=== PATIENT | female | born 1945 | race Caucasian/White ===

== ENCOUNTER 2021-04-23 13:59 | Inpatient (IN) | payer MEDICARE, BC ==
[~2021-04-23 13:59] MED LIST: Iopamidol-370 76% 500 ML 1 ML ONE
[2021-04-23] MEDS ORDERED: Ondansetron PF 4 MG/2 ML Vial ONE (14:57)
[2021-04-23] MEDS ORDERED: Morphine 4 MG/ML VIAL ONE (14:57)
[2021-04-23 14:58] LABS: #Lymphocytes 0.7 thou/uL (1.20-3.40); #Monocytes 0.4 thou/uL (0.11-0.59); #Neutrophils 11.7 thou/uL (1.40-6.50); %Basophils 0.1 % (0.0-1.0); %Eosinophils 0.3 % (0.0-10.0); %Lymphocytes 5.1 % (21.0-51.0); %Monocytes 3.2 % (0.0-10.0); %Neutrophils 91.3 % (42.0-75.0); Hemoglobin 14.5 g/dL (12.0-16.0); Mean Corpuscular HGB CONC 30.8 g/dL (32.0-36.0); Mean Corpuscular Hemoglobin 29.5 pg (27.0-31.0); Mean Corpuscular Volume 95.9 fL (78.0-98.0); Mean Platelet Volume 6.8 fL (7.4-10.4); Platelet Count 441 thou/uL (130-400); RBC Distribution Width 14.2 % (11.5-14.5); White Blood Cell (WBC) Count 12.8 thou/uL (4.8-10.8)
[2021-04-23 15:53] LABS: ALT (SGPT) 1545 U/L (8-55); AST (SGOT) 1772 U/L (5-34); Albumin 4.6 g/dL (3.4-4.8); Alkaline Phosphatase 217 U/L (40-110); Anion Gap 33 mmol/L (10-20); BUN (Urea Nitrogen) 17 mg/dL (9.8-20.1); Bilirubin, Total 0.9 mg/dL (0.2-1.2); Calc. Creatinine Clearance 0 mL/min (70-130); Calcium 11.3 mg/dL (7.8-10.44); Carbon Dioxide 13 mmol/L (23-31); Chloride 99 mmol/L (98-107); Globulin 3.5 g/dL (2.4-3.5); Glucose 69 mg/dL (83-110); Lipase 500 U/L (8-78); Magnesium 1.7 mg/dL (1.6-2.6); Potassium 4.7 mmol/L (3.5-5.1); Protein, Total 8.1 g/dL (5.8-8.1); Sodium 140 mmol/L (136-145)
[2021-04-23] MEDS ORDERED: Dextrose 50% Abboject 50 ML SYRINGE ONE (18:04)
[2021-04-23] MEDS ORDERED: Ondansetron PF 4 MG/2 ML Vial IVP PRN (18:24)
[2021-04-23] MEDS ORDERED: Dextrose 5% in Water 1,000 ML IV PRN (18:44)
[2021-04-23] MEDS ORDERED: Dextrose 50% Abboject 50 ML SYRINGE SLOW IVP PRN (18:44)
[2021-04-23] MEDS ORDERED: Dextrose 5 %-0.45 % NaCl 1,000 ML IV SCH (18:45)
[2021-04-23] MEDS ORDERED: Morphine 4 MG/ML VIAL SLOW IVP PRN (19:08)
[2021-04-23 20:25] LABS: Actual Bicarbonate (HCO3v) 16 mEq/L (22-28); Analyzer IN Cardio ER; Base Excess -7.6 mEq/L (-2.0 to +3.0); Calcium, Ionized (venous) 1.28 mmol/L (1.16-1.32); Chloride (VBG) 106 mmol/L (98-106); Hemoglobin (Hb) 12.5 g/dL (11.7-16.1); Potassium (VBG) 3.82 mmol/L (3.70-5.30); Sodium 140.9 mmol/L (133-146); pH (venous) 7.38 (7.32-7.43)
[2021-04-23 20:37] LABS: SARS-CoV-2 NAA Rapid Test Not Detected (NotDetected)
[2021-04-23] MEDS ORDERED: Heparin 5,000 UNITS/ML VIAL SC SCH (21:00)
[2021-04-23 21:01] LABS: Acetaminophen Less than 6.0 mcg/mL (10.0-30.0); Alcohol Less than 10 mg/dL (Less than 10); Salicylate Less than 8.0 mg/dL (15.0-30.0)
[2021-04-23] MEDS ORDERED: Sodium Bicarbonate 150 MEQ in Dextrose 5% in Water 850 ML FS SCH (21:15)
[2021-04-23 21:23] LABS: INR-International Normal Ratio 1.2; PTT 32.2 sec (22.9-36.1); Prothrombin Time 15.7 sec (12.0-14.7)
[2021-04-23 21:25] LABS: Bilirubin 1+ (Negative); Blood, Urine 3+ (Negative); Clarity Clear (Clear); Glucose, Urine (Dipstick) 50 mg/dL (Negative); Ketone, Urine 60 mg/dL (Negative); Leukocyte 250 Leu/uL (Negative); Nitrite Negative (Negative); Protein, Urine (Dipstick) 100 mg/dL (Neg-Trace); RBC/HPF 21-50 HPF (0-3); Squamous Epithelial 0-3 HPF (0-3); WBC/HPF 21-50 HPF (0-3)
[2021-04-23 21:32] LABS: Acetaminophen Less than 6.0 mcg/mL (10.0-30.0); CK (CPK) 55 U/L (29-168)
[2021-04-23 21:40] LABS: Bacteria/HPF Rare-Few HPF (None Seen)
[2021-04-23] MEDS: Morphine 4 MG/ML VIAL SLOW IVP PRN (22:01)
[2021-04-23] MEDS: Ondansetron PF 4 MG/2 ML Vial IVP PRN (22:02)
[2021-04-23] MEDS: Sodium Bicarbonate 150 MEQ in Dextrose 5% in Water 850 ML FS SCH (22:06)
[2021-04-23] MEDS: Clotrimazole 1 % Cream 30 GM TUBE TOP SCH (22:46)
[2021-04-23] MEDS: Pantoprazole 40 MG VIAL IVP SCH (22:47)
[2021-04-24] MEDS: Morphine 4 MG/ML VIAL SLOW IVP PRN ×3 (02:24→22:39)
[2021-04-24] MEDS: Ondansetron PF 4 MG/2 ML Vial IVP PRN ×3 (02:30→22:39)
[2021-04-24 06:27] LABS: #Lymphocytes 0.7 thou/uL (1.20-3.40); #Monocytes 0.8 thou/uL (0.11-0.59); #Neutrophils 9.4 thou/uL (1.40-6.50); %Eosinophils 0.2 % (0.0-10.0); %Lymphocytes 6.4 % (21.0-51.0); %Monocytes 6.9 % (0.0-10.0); %Neutrophils 86.4 % (42.0-75.0); Hemoglobin 10.8 g/dL (12.0-16.0); Mean Corpuscular HGB CONC 31.8 g/dL (32.0-36.0); Mean Corpuscular Hemoglobin 30.1 pg (27.0-31.0); Mean Corpuscular Volume 94.5 fL (78.0-98.0); Mean Platelet Volume 6.7 fL (7.4-10.4); Platelet Count 345 thou/uL (130-400); RBC Distribution Width 14.3 % (11.5-14.5); Red Blood Cell (RBC) Count 3.61 mill/uL (4.20-5.40); White Blood Cell (WBC) Count 10.8 thou/uL (4.8-10.8)
[2021-04-24 06:49] LABS: ALT (SGPT) 869 U/L (8-55); AST (SGOT) 728 U/L (5-34); Albumin 3.4 g/dL (3.4-4.8); Alkaline Phosphatase 141 U/L (40-110); Anion Gap 17 mmol/L (10-20); BUN (Urea Nitrogen) 12 mg/dL (9.8-20.1); Bilirubin, Total 0.9 mg/dL (0.2-1.2); Calc. Creatinine Clearance 46 mL/min (70-130); Calcium 9.9 mg/dL (7.8-10.44); Carbon Dioxide 29 mmol/L (23-31); Chloride 100 mmol/L (98-107); Globulin 2.8 g/dL (2.4-3.5); Glucose 119 mg/dL (83-110); Magnesium 1.3 mg/dL (1.6-2.6); Potassium 3.5 mmol/L (3.5-5.1); Protein, Total 6.2 g/dL (5.8-8.1); Sodium 142 mmol/L (136-145)
[2021-04-24] MEDS: Sodium Bicarbonate 150 MEQ in Dextrose 5% in Water 850 ML FS SCH (07:33)
[2021-04-24 07:44] LABS: Hemoglobin 10.9 g/dL (12.0-16.0)
[2021-04-24] MEDS ORDERED: LEVAQUIN IVPB PRN (08:58)
[2021-04-24] MEDS: Sodium Chloride 0.45% 1,000 ML IV SCH ×2 (10:11→22:35)
[2021-04-24 13:55] LABS: Hemoglobin 10.7 g/dL (12.0-16.0)
[2021-04-24] MEDS: Pantoprazole 40 MG VIAL IVP SCH ×2 (14:14→20:17)
[2021-04-24 14:34] LABS: Iron 64 ug/dL (50-170); Iron Binding Capacity, Total 185 mcg/dL (265-497)
[2021-04-24 14:58] LABS: HBSAg Index 0.22 S/CO (0-0.99); Hep B Surf Ag Non-Reactive S/CO (NonReactive)
[2021-04-24 15:00] LABS: Hep C IgG Ab Non-Reactive (NonReactive); Hep C Index 0.19 S/CO (0-0.79)
[2021-04-24 15:16] LABS: HBCM Index 0.06 S/CO (0-0.79); Hep A IgM AB Non-Reactive (NonReactive); Hep A IgM S/CO 0.44 S/CO (0-0.79); Hepatitis B Core IgM Abs Non-Reactive (NonReactive)
[2021-04-24 16:13] LABS: Ferritin 2115.95 ng/mL (10-291)
[2021-04-24] MEDS ORDERED: Cosyntropin 250 MCG VIAL SLOW IVP SCH (17:45)
[2021-04-24] MEDS ORDERED: methylPREDNISolone Sod Succ 40 MG VIAL ONE (20:07)
[2021-04-24] MEDS: methylPREDNISolone Sod Succ 40 MG VIAL IVP SCH (20:30)
[2021-04-24] MEDS: Clotrimazole 1 % Cream 30 GM TUBE TOP SCH (20:48)
[2021-04-25 04:27] LABS: #Basophils 0.1 thou/uL (0.0-0.2); #Lymphocytes 0.2 thou/uL (1.20-3.40); #Monocytes 0.1 thou/uL (0.11-0.59); #Neutrophils 5.4 thou/uL (1.40-6.50); %Basophils 1.8 % (0.0-1.0); %Eosinophils 0.2 % (0.0-10.0); %Lymphocytes 2.9 % (21.0-51.0); %Neutrophils 94.2 % (42.0-75.0); Hemoglobin 9.8 g/dL (12.0-16.0); Mean Corpuscular HGB CONC 32.2 g/dL (32.0-36.0); Mean Corpuscular Hemoglobin 31.1 pg (27.0-31.0); Mean Corpuscular Volume 96.7 fL (78.0-98.0); Mean Platelet Volume 6.3 fL (7.4-10.4); Platelet Count 291 thou/uL (130-400); RBC Distribution Width 13.9 % (11.5-14.5); Red Blood Cell (RBC) Count 3.16 mill/uL (4.20-5.40); White Blood Cell (WBC) Count 5.7 thou/uL (4.8-10.8)
[2021-04-25 04:47] LABS: Anion Gap 14 mmol/L (10-20); BUN (Urea Nitrogen) 8 mg/dL (9.8-20.1); Calc. Creatinine Clearance 57 mL/min (70-130); Calcium 8.8 mg/dL (7.8-10.44); Carbon Dioxide 30 mmol/L (23-31); Chloride 95 mmol/L (98-107); Glucose 120 mg/dL (83-110); Sodium 135 mmol/L (136-145)
[2021-04-25] MEDS: Aztreonam 1 GM in Sodium Chloride 0.9% 100 ML IVPB SCH ×2 (11:13→21:03)
[2021-04-25] MEDS: Sodium Chloride 0.9% 1,000 ML IV SCH (11:14)
[2021-04-25] MEDS: Pantoprazole 40 MG VIAL IVP SCH ×2 (11:14→21:49)
[2021-04-25] MEDS: methylPREDNISolone Sod Succ 40 MG VIAL IVP SCH ×2 (11:14→21:03)
[2021-04-25 18:18] LABS: ALT (SGPT) 466 U/L (8-55); AST (SGOT) 261 U/L (5-34); Albumin 3.2 g/dL (3.4-4.8); Alkaline Phosphatase 114 U/L (40-110); Bilirubin, Direct 0.5 mg/dL (0.1-0.3); Bilirubin, Total 0.8 mg/dL (0.2-1.2); Protein, Total 5.8 g/dL (5.8-8.1)
[2021-04-25] MEDS: Ondansetron PF 4 MG/2 ML Vial IVP PRN (21:03)
[2021-04-25] MEDS: Morphine 4 MG/ML VIAL SLOW IVP PRN (21:05)
[2021-04-25] MEDS: Clotrimazole 1 % Cream 30 GM TUBE TOP SCH (21:08)
[2021-04-26] MEDS: Sodium Chloride 0.9% 1,000 ML IV SCH ×3 (00:51→21:19)
[2021-04-26] MEDS: Melatonin 3 MG TAB PO PRN ×2 (00:52→21:21)
[2021-04-26 06:48] LABS: #Lymphocytes 0.3 thou/uL (1.20-3.40); #Monocytes 0.1 thou/uL (0.11-0.59); #Neutrophils 5.1 thou/uL (1.40-6.50); %Eosinophils 0.3 % (0.0-10.0); %Lymphocytes 5.6 % (21.0-51.0); %Monocytes 1.8 % (0.0-10.0); %Neutrophils 92.3 % (42.0-75.0); Hemoglobin 9.2 g/dL (12.0-16.0); Mean Corpuscular HGB CONC 32.8 g/dL (32.0-36.0); Mean Corpuscular Hemoglobin 31.2 pg (27.0-31.0); Mean Corpuscular Volume 95.1 fL (78.0-98.0); Mean Platelet Volume 6.4 fL (7.4-10.4); Platelet Count 271 thou/uL (130-400); RBC Distribution Width 13.8 % (11.5-14.5); Red Blood Cell (RBC) Count 2.96 mill/uL (4.20-5.40); White Blood Cell (WBC) Count 5.6 thou/uL (4.8-10.8)
[2021-04-26 07:06] LABS: ALT (SGPT) 366 U/L (8-55); AST (SGOT) 181 U/L (5-34); Alkaline Phosphatase 98 U/L (40-110); Anion Gap 15 mmol/L (10-20); BUN (Urea Nitrogen) 9 mg/dL (9.8-20.1); Bilirubin, Total 0.6 mg/dL (0.2-1.2); Calc. Creatinine Clearance 48 mL/min (70-130); Calcium 8.2 mg/dL (7.8-10.44); Carbon Dioxide 27 mmol/L (23-31); Chloride 99 mmol/L (98-107); Globulin 2.4 g/dL (2.4-3.5); Glucose 104 mg/dL (83-110); Lipase 56 U/L (8-78); Potassium 3.8 mmol/L (3.5-5.1); Protein, Total 5.4 g/dL (5.8-8.1); Sodium 137 mmol/L (136-145)
[2021-04-26] MEDS: Aztreonam 1 GM in Sodium Chloride 0.9% 100 ML IVPB SCH ×2 (09:22→21:18)
[2021-04-26] MEDS: Pantoprazole 40 MG VIAL IVP SCH ×2 (09:22→21:22)
[2021-04-26] MEDS: methylPREDNISolone Sod Succ 40 MG VIAL IVP SCH ×2 (09:22→21:22)
[2021-04-26] MEDS: Morphine 4 MG/ML VIAL SLOW IVP PRN ×2 (09:38→16:23)
[2021-04-26] MEDS: Ondansetron PF 4 MG/2 ML Vial IVP PRN ×2 (09:50→16:20)
[2021-04-26 11:19] LABS: ANA Symphony (Qualitative) Negative (Negative); ANA Symphony (Quantitative) 0.2 Ratio (< 0.7 Negative); EliA Vaculitis New Method **** NEW METHOD ****; Mitochondrial Ab 0.7 U/mL (<4 Negative); dsDNA IgG Antibody 1.5 IU/mL (<10 Negative)
[2021-04-26] MEDS: Clotrimazole 1 % Cream 30 GM TUBE TOP SCH (21:22)
[2021-04-27] MEDS: Morphine 4 MG/ML VIAL SLOW IVP PRN ×3 (05:54→21:45)
[2021-04-27] MEDS: Ondansetron PF 4 MG/2 ML Vial IVP PRN ×2 (05:59→21:45)
[2021-04-27 06:50] LABS: Reference Lab Name LABCORP
[2021-04-27] MEDS: Aztreonam 1 GM in Sodium Chloride 0.9% 100 ML IVPB SCH ×3 (08:11→21:44)
[2021-04-27] MEDS: methylPREDNISolone Sod Succ 40 MG VIAL IVP SCH ×2 (08:11→21:49)
[2021-04-27] MEDS: Pantoprazole 40 MG VIAL IVP SCH ×2 (08:11→21:49)
[2021-04-27] MEDS ORDERED: FLU VACC QS2021-22(65YR UP)/PF 240 MCG/0.7 ML SYRINGE IM ONE (09:00)
[2021-04-27] MEDS ORDERED: PROPOFOL 20 ML ONE (10:04)
[2021-04-27] MEDS ORDERED: Famotidine/PF 20 mg/2ml Vial ONE (10:04)
[2021-04-27] MEDS ORDERED: Ondansetron PF 4 MG/2 ML Vial ONE ×2 (10:04→10:20)
[2021-04-27] MEDS ORDERED: Fentanyl 100 MCG/2 ML VIAL ONE (10:04)
[2021-04-27] MEDS ORDERED: Midazolam HCl 2 mg/2 ml Vial ONE (10:04)
[2021-04-27] MEDS ORDERED: Iothalamate Meglumine 60% 50 ML VIAL FS ONE (10:08)
[2021-04-27] MEDS ORDERED: Lidocaine 1% PF 5 ML VIAL ONE (10:20)
[2021-04-27] MEDS ORDERED: Promethazine HCl 25 MG/ML VIAL ONE (10:52)
[2021-04-27] MEDS ORDERED: Promethazine HCl 25 MG/ML VIAL IM PRN (10:54)
[2021-04-27] MEDS ORDERED: Ondansetron HCl/PF 4 MG/2 ML Vial IVP PRN (10:54)
[2021-04-27] MEDS ORDERED: Promethazine HCl 25 MG/ML VIAL IVPB PRN (10:54)
[2021-04-27] MEDS: Sodium Chloride 0.9% 1,000 ML IV SCH ×2 (13:26→14:51)
[2021-04-27 13:38] LABS: IgA - Total IgA (Sendout) 188 mg/dL (64-422); Immunoglobulin - G (Sendout) 547 mg/dL (586-1602); Immunoglobulin - M (Sendout) 83 mg/dL (26-217)
[2021-04-27] MEDS: Clotrimazole 1 % Cream 30 GM TUBE TOP SCH (21:49)
[2021-04-28] MEDS: Morphine 4 MG/ML VIAL SLOW IVP PRN ×4 (03:10→20:10)
[2021-04-28] MEDS: Sodium Chloride 0.9% 1,000 ML IV SCH ×3 (07:47→16:22)
[2021-04-28] MEDS: methylPREDNISolone Sod Succ 40 MG VIAL IVP SCH ×2 (09:20→20:10)
[2021-04-28] MEDS: Aztreonam 1 GM in Sodium Chloride 0.9% 100 ML IVPB SCH ×2 (09:20→20:10)
[2021-04-28] MEDS: Pantoprazole 40 MG VIAL IVP SCH ×2 (11:37→20:11)
[2021-04-28] MEDS: Ondansetron PF 4 MG/2 ML Vial IVP PRN ×2 (14:02→20:10)
[2021-04-28 15:36] LABS: #Lymphocytes 0.4 thou/uL (1.20-3.40); #Monocytes 0.1 thou/uL (0.11-0.59); #Neutrophils 5.1 thou/uL (1.40-6.50); %Basophils 0.3 % (0.0-1.0); %Eosinophils 0.2 % (0.0-10.0); %Lymphocytes 6.7 % (21.0-51.0); %Monocytes 2.1 % (0.0-10.0); %Neutrophils 90.6 % (42.0-75.0); Hemoglobin 9.6 g/dL (12.0-16.0); Mean Corpuscular HGB CONC 32.4 g/dL (32.0-36.0); Mean Corpuscular Hemoglobin 30.9 pg (27.0-31.0); Mean Corpuscular Volume 95.4 fL (78.0-98.0); Mean Platelet Volume 6.2 fL (7.4-10.4); Platelet Count 274 thou/uL (130-400); RBC Distribution Width 14.3 % (11.5-14.5); Red Blood Cell (RBC) Count 3.09 mill/uL (4.20-5.40); White Blood Cell (WBC) Count 5.6 thou/uL (4.8-10.8)
[2021-04-28 16:00] LABS: ALT (SGPT) 164 U/L (8-55); AST (SGOT) 55 U/L (5-34); Albumin 2.5 g/dL (3.4-4.8); Alkaline Phosphatase 70 U/L (40-110); Anion Gap 13 mmol/L (10-20); BUN (Urea Nitrogen) 7 mg/dL (9.8-20.1); Bilirubin, Total 0.3 mg/dL (0.2-1.2); Calc. Creatinine Clearance 56 mL/min (70-130); Calcium 6.6 mg/dL (7.8-10.44); Carbon Dioxide 19 mmol/L (23-31); Chloride 110 mmol/L (98-107); Globulin 1.9 g/dL (2.4-3.5); Glucose 144 mg/dL (83-110); Protein, Total 4.4 g/dL (5.8-8.1); Sodium 139 mmol/L (136-145)
[2021-04-28 16:04] LABS: Potassium 2.9 mmol/L (3.5-5.1)
[2021-04-28] MEDS ORDERED: Potassium Chloride 20 MEQ TAB PO SCH ×2 (16:30→18:45)
[2021-04-28] MEDS: Clotrimazole 1 % Cream 30 GM TUBE TOP SCH (20:11)
[2021-04-29] MEDS: Morphine 4 MG/ML VIAL SLOW IVP PRN ×4 (00:51→20:43)
[2021-04-29 06:16] LABS: ALT (SGPT) 163 U/L (8-55); AST (SGOT) 53 U/L (5-34); Albumin 2.8 g/dL (3.4-4.8); Alkaline Phosphatase 76 U/L (40-110); Anion Gap 11 mmol/L (10-20); BUN (Urea Nitrogen) 7 mg/dL (9.8-20.1); Bilirubin, Total 0.4 mg/dL (0.2-1.2); Calc. Creatinine Clearance 53 mL/min (70-130); Calcium 7.8 mg/dL (7.8-10.44); Carbon Dioxide 24 mmol/L (23-31); Chloride 109 mmol/L (98-107); Globulin 2.1 g/dL (2.4-3.5); Glucose 138 mg/dL (83-110); Potassium 4.8 mmol/L (3.5-5.1); Protein, Total 4.9 g/dL (5.8-8.1); Sodium 139 mmol/L (136-145)
[2021-04-29] MEDS: Sodium Chloride 0.9% 1,000 ML IV SCH ×3 (09:14→20:41)
[2021-04-29] MEDS: Aztreonam 1 GM in Sodium Chloride 0.9% 100 ML IVPB SCH ×2 (09:14→20:41)
[2021-04-29] MEDS: methylPREDNISolone Sod Succ 40 MG VIAL IVP SCH ×2 (09:14→20:42)
[2021-04-29] MEDS: Ondansetron PF 4 MG/2 ML Vial IVP PRN ×2 (09:14→15:24)
[2021-04-29] MEDS: Pantoprazole 40 MG VIAL IVP SCH ×2 (10:31→20:44)
[2021-04-29] MEDS ORDERED: Bisacodyl 5 MG TAB PO PRN (14:08)
[2021-04-29] MEDS: Melatonin 3 MG TAB PO PRN (20:42)
[2021-04-29] MEDS: Clotrimazole 1 % Cream 30 GM TUBE TOP SCH (20:45)
[2021-04-30] MEDS: Morphine 4 MG/ML VIAL SLOW IVP PRN ×4 (01:08→19:21)
[2021-04-30] MEDS: Ondansetron PF 4 MG/2 ML Vial IVP PRN ×3 (01:10→14:59)
[2021-04-30] MEDS: methylPREDNISolone Sod Succ 40 MG VIAL IVP SCH (08:12)
[2021-04-30] MEDS: Aztreonam 1 GM in Sodium Chloride 0.9% 100 ML IVPB SCH (09:11)
[2021-04-30] MEDS: Pantoprazole 40 MG VIAL IVP SCH (09:11)
[2021-04-30] MEDS: Sodium Chloride 0.9% 1,000 ML IV SCH (10:19)
[2021-04-30 10:53] LABS: ALT (SGPT) 126 U/L (8-55); AST (SGOT) 39 U/L (5-34); Albumin 2.9 g/dL (3.4-4.8); Alkaline Phosphatase 79 U/L (40-110); Anion Gap 9 mmol/L (10-20); BUN (Urea Nitrogen) 9 mg/dL (9.8-20.1); Bilirubin, Total 0.4 mg/dL (0.2-1.2); Calc. Creatinine Clearance 49 mL/min (70-130); Calcium 7.9 mg/dL (7.8-10.44); Carbon Dioxide 26 mmol/L (23-31); Chloride 108 mmol/L (98-107); Globulin 2.2 g/dL (2.4-3.5); Glucose 126 mg/dL (83-110); Potassium 3.8 mmol/L (3.5-5.1); Protein, Total 5.1 g/dL (5.8-8.1); Sodium 139 mmol/L (136-145)
[2021-04-30] MEDS ORDERED: Bisacodyl 10 MG SUPP PR PRN (11:55)
[2021-04-30] MEDS ORDERED: Polyethylene Glycol 3350 17 GM Packet PO SCH ×2 (11:55→12:15)
[2021-04-30] MEDS ORDERED: Furosemide 20 MG/2 ML VIAL SLOW IVP SCH (12:00)
[2021-04-30 16:13] LABS: A/G Ratio 1.3 (0.7-1.7); Albumin 2.7 g/dL (2.9-4.4); Alpha 1 0.2 g/dL (0.0-0.4); Alpha 2 0.7 g/dL (0.4-1.0); Beta 0.6 g/dL (0.7-1.3); Gamma 0.5 g/dL (0.4-1.8); Globulin, Total 2.1 g/dL (2.2-3.9); M-Spike Not Observed g/dL (Not Observed)
[2021-04-30 16:37] LABS: Albumin-Ur 23.4 % (.); Alpha 2 - Ur 19.5 % (.); Gamma-Ur 16.2 % (.); M-Spike,% Not Observed % (Not Observed); Protein, Urine 13.5 mg/dL (Not Estab.)
[2021-04-30] MEDS: Melatonin 3 MG TAB PO PRN (19:21)
[2021-05-01] MEDS: Morphine 4 MG/ML VIAL SLOW IVP PRN ×4 (00:55→20:13)
[2021-05-01] MEDS: Ondansetron PF 4 MG/2 ML Vial IVP PRN ×3 (00:58→22:10)
[2021-05-01] MEDS: predniSONE 20 MG TAB PO SCH (08:37)
[2021-05-01] MEDS: Gemfibrozil 600 MG TAB PO SCH ×2 (08:37→19:30)
[2021-05-01] MEDS: Aspirin Chewable 81 MG TAB PO SCH (08:37)
[2021-05-01] MEDS: Hydroxychloroquine Sulfate 200 MG TAB PO SCH (08:38)
[2021-05-01] MEDS: Polyethylene Glycol 3350 17 GM Packet PO SCH (11:49)
[2021-05-01 11:58] LABS: #Lymphocytes 0.7 thou/uL (1.20-3.40); #Monocytes 0.9 thou/uL (0.11-0.59); #Neutrophils 9.4 thou/uL (1.40-6.50); %Basophils 0.2 % (0.0-1.0); %Eosinophils 0.3 % (0.0-10.0); %Lymphocytes 6.7 % (21.0-51.0); %Monocytes 8.3 % (0.0-10.0); %Neutrophils 84.5 % (42.0-75.0); Hemoglobin 10.1 g/dL (12.0-16.0); Mean Corpuscular HGB CONC 32.5 g/dL (32.0-36.0); Mean Corpuscular Hemoglobin 30.9 pg (27.0-31.0); Mean Corpuscular Volume 95.2 fL (78.0-98.0); Mean Platelet Volume 6.9 fL (7.4-10.4); Platelet Count 185 thou/uL (130-400); RBC Distribution Width 14.8 % (11.5-14.5); Red Blood Cell (RBC) Count 3.27 mill/uL (4.20-5.40); White Blood Cell (WBC) Count 11.1 thou/uL (4.8-10.8)
[2021-05-01 12:19] LABS: ALT (SGPT) 96 U/L (8-55); AST (SGOT) 37 U/L (5-34); Albumin 2.7 g/dL (3.4-4.8); Alkaline Phosphatase 77 U/L (40-110); Anion Gap 10 mmol/L (10-20); BUN (Urea Nitrogen) 11 mg/dL (9.8-20.1); Bilirubin, Total 0.5 mg/dL (0.2-1.2); Calc. Creatinine Clearance 52 mL/min (70-130); Calcium 7.9 mg/dL (7.8-10.44); Carbon Dioxide 28 mmol/L (23-31); Chloride 104 mmol/L (98-107); Globulin 2.3 g/dL (2.4-3.5); Glucose 108 mg/dL (83-110); Potassium 3.9 mmol/L (3.5-5.1); Sodium 138 mmol/L (136-145)
[2021-05-01] MEDS ORDERED: Furosemide 40 MG/4 ML VIAL SLOW IVP SCH (12:45)
[2021-05-01] MEDS ORDERED: Bisacodyl 10 MG SUPP PR SCH ×2 (13:00→15:00)
[2021-05-01] MEDS: Bisacodyl 10 MG SUPP PR SCH (20:12)
[2021-05-01] MEDS: Furosemide 20 MG/2 ML VIAL SLOW IVP SCH (20:17)
[2021-05-01] MEDS: Melatonin 3 MG TAB PO PRN (20:17)
[2021-05-02] MEDS: Morphine 4 MG/ML VIAL SLOW IVP PRN ×3 (01:08→10:05)
[2021-05-02] MEDS: Ondansetron PF 4 MG/2 ML Vial IVP PRN ×3 (05:02→14:35)
[2021-05-02] MEDS: predniSONE 20 MG TAB PO SCH (09:49)
[2021-05-02] MEDS: Hydroxychloroquine Sulfate 200 MG TAB PO SCH (09:49)
[2021-05-02] MEDS: Furosemide 20 MG/2 ML VIAL SLOW IVP SCH ×2 (09:50→20:06)
[2021-05-02] MEDS: Gemfibrozil 600 MG TAB PO SCH ×2 (09:50→17:28)
[2021-05-02] MEDS: Bisacodyl 10 MG SUPP PR SCH ×3 (09:51→20:13)
[2021-05-02] MEDS: Aspirin Chewable 81 MG TAB PO SCH (09:51)
[2021-05-02] MEDS: Polyethylene Glycol 3350 17 GM Packet PO SCH (09:52)
[2021-05-02] MEDS ORDERED: HYDROcodone/Acetaminophen 5/325 mg Tablet PO PRN (10:28)
[2021-05-02 12:17] VITALS: BMI 17.8
[2021-05-02] MEDS: Acetaminophen/Codeine 30-300mg Tablet PO PRN (20:06)
[2021-05-03] MEDS: ALPRAZolam 0.5 MG TAB PO PRN ×2 (00:36→21:39)
[2021-05-03] MEDS: Aspirin Chewable 81 MG TAB PO SCH (08:23)
[2021-05-03] MEDS: Hydroxychloroquine Sulfate 200 MG TAB PO SCH (08:24)
[2021-05-03] MEDS: predniSONE 20 MG TAB PO SCH (08:24)
[2021-05-03] MEDS: Bisacodyl 10 MG SUPP PR SCH ×3 (08:24→21:23)
[2021-05-03] MEDS: Gemfibrozil 600 MG TAB PO SCH ×2 (08:24→16:04)
[2021-05-03] MEDS: Furosemide 20 MG/2 ML VIAL SLOW IVP SCH ×2 (08:24→21:23)
[2021-05-03] MEDS: Polyethylene Glycol 3350 17 GM Packet PO SCH (08:25)
[2021-05-03] MEDS: Acetaminophen/Codeine 30-300mg Tablet PO PRN (10:39)
[2021-05-03] MEDS: Ondansetron PF 4 MG/2 ML Vial IVP PRN (14:20)
[2021-05-03 21:04] LABS: SARS-CoV-2 PCR by NAA Not Detected (NotDetected)
[2021-05-04] MEDS: Acetaminophen/Codeine 30-300mg Tablet PO PRN ×3 (02:55→20:34)
[2021-05-04] MEDS: Furosemide 20 MG/2 ML VIAL SLOW IVP SCH (08:40)
[2021-05-04] MEDS: Aspirin Chewable 81 MG TAB PO SCH (08:40)
[2021-05-04] MEDS: Hydroxychloroquine Sulfate 200 MG TAB PO SCH (08:40)
[2021-05-04] MEDS: predniSONE 20 MG TAB PO SCH (08:40)
[2021-05-04] MEDS: Gemfibrozil 600 MG TAB PO SCH ×2 (08:40→16:20)
[2021-05-04] MEDS: Polyethylene Glycol 3350 17 GM Packet PO SCH (08:41)
[2021-05-04] MEDS: Bisacodyl 10 MG SUPP PR SCH ×3 (08:41→20:32)
[2021-05-04] MEDS: Ondansetron PF 4 MG/2 ML Vial IVP PRN (17:41)
[2021-05-05 06:57] LABS: #Lymphocytes 1.3 thou/uL (1.20-3.40); %Basophils 0.2 % (0.0-1.0); %Eosinophils 0.4 % (0.0-10.0); %Lymphocytes 13.8 % (21.0-51.0); %Monocytes 10.5 % (0.0-10.0); %Neutrophils 75.1 % (42.0-75.0); Hemoglobin 10.9 g/dL (12.0-16.0); Mean Corpuscular Hemoglobin 30.8 pg (27.0-31.0); Mean Corpuscular Volume 96.3 fL (78.0-98.0); Mean Platelet Volume 7.4 fL (7.4-10.4); Platelet Count 232 thou/uL (130-400); RBC Distribution Width 14.6 % (11.5-14.5); Red Blood Cell (RBC) Count 3.55 mill/uL (4.20-5.40); White Blood Cell (WBC) Count 9.3 thou/uL (4.8-10.8)
[2021-05-05 07:20] LABS: ALT (SGPT) 46 U/L (8-55); AST (SGOT) 25 U/L (5-34); Albumin 3.4 g/dL (3.4-4.8); Alkaline Phosphatase 94 U/L (40-110); BUN (Urea Nitrogen) 22 mg/dL (9.8-20.1); Bilirubin, Total 0.8 mg/dL (0.2-1.2); Calc. Creatinine Clearance 46 mL/min (70-130); Calcium 8.4 mg/dL (7.8-10.44); Globulin 2.7 g/dL (2.4-3.5); Glucose 104 mg/dL (83-110); Protein, Total 6.1 g/dL (5.8-8.1)
[2021-05-05 07:29] LABS: Anion Gap 20 mmol/L (10-20); Carbon Dioxide 35 mmol/L (23-31); Chloride 86 mmol/L (98-107); Potassium 3.4 mmol/L (3.5-5.1); Sodium 138 mmol/L (136-145)
[2021-05-05] MEDS: Aspirin Chewable 81 MG TAB PO SCH (08:00)
[2021-05-05] MEDS: Gemfibrozil 600 MG TAB PO SCH (08:00)
[2021-05-05] MEDS ORDERED: predniSONE 5 MG TAB PO SCH (08:00)
[2021-05-05] MEDS: Hydroxychloroquine Sulfate 200 MG TAB PO SCH (08:01)
[2021-05-05] MEDS: Polyethylene Glycol 3350 17 GM Packet PO SCH (08:01)
[2021-05-05] MEDS: Bisacodyl 10 MG SUPP PR SCH (08:02)
[2021-05-05] MEDS ORDERED: Potassium Chloride 20 MEQ TAB PO SCH (08:15)
[2021-05-05] MEDS: Acetaminophen/Codeine 30-300mg Tablet PO PRN (10:16)
[2021-05-05 11:54] VITALS: BP 104/69; TEMP 98.1
== END 2021-05-05 12:20 | disposition home or self-care (01) | DRG 871 ==
LOC: ERS 13:59 → ERHOLD 18:15 → IMCU/EMU 21:26 → T4-B 04-26 12:14
PROVIDERS: ADMIT Specialist; ATTEND Internal Medicine
PROC: 0TP98DZ Removal of Intraluminal Device from Ureter, Via Natural or Artificial Opening Endoscopic (ICD-10-PCS; principal; 2021-04-27)
DX: A41.9 Sepsis, unspecified organism (principal); K72.00 Acute and subacute hepatic failure without coma; K85.10 Biliary acute pancreatitis without necrosis or infection; S32.010A Wedge compression fracture of first lumbar vertebra, initial encounter for closed fracture; R64 Cachexia; Z68.1 Body mass index [BMI] 19.9 or less, adult; E87.2 Acidosis; N13.6 Pyonephrosis; D84.821 Immunodeficiency due to drugs; E87.1 Hypo-osmolality and hyponatremia; Z20.822 Contact with and (suspected) exposure to COVID-19; M06.9 Rheumatoid arthritis, unspecified; E78.5 Hyperlipidemia, unspecified; M19.90 Unspecified osteoarthritis, unspecified site; F41.9 Anxiety disorder, unspecified; E16.2 Hypoglycemia, unspecified; E86.0 Dehydration; E20.9 Hypoparathyroidism, unspecified; K59.00 Constipation, unspecified; X58.XXXA Exposure to other specified factors, initial encounter; Z88.1 Allergy status to other antibiotic agents; Z79.899 Other long term (current) drug therapy; Z79.52 Long term (current) use of systemic steroids; Z90.49 Acquired absence of other specified parts of digestive tract; Z74.01 Bed confinement status
CPT/HCPCS: 36415; 36416; 51701; 74018; 74177; 76705; 80048; 80053; 80074; 80076; 80143; 80307; 80400; 81003; 81015; 82274; 82330; 82550; 82728; 82805; 82977; 83516; 83540; 83550; 83605; 83690; 83735; 83880; 83970; 84165; 84166; 84443; 85025; 85610; 85730; 86038; 86225; 86334; 86335; 87040; 87086; 87149; 93005; 96365; 96366; 96368; 96375; C9113; J0834; J1940; J1956; J2250; J2270; J2405; J2550; J2704; J2920; J3010; J3490; J7050; J7070; J7512; Q9961-U8; Q9967; S0028; U0002; U0003; U0005

== ENCOUNTER 2021-06-26 16:03 | Outpatient (CLI) | payer MEDICARE, BC | END 2021-06-26 16:04 | disposition home or self-care (01) | LOC: ULT 16:03 | PROVIDERS: ATTEND Nurse Practitioner Family | DX: R60.0 Localized edema (principal) ==

== ENCOUNTER 2021-07-25 14:30 | Inpatient (IN) | payer MEDICARE, BC ==
[2021-07-25] MEDS ORDERED: Ondansetron PF 4 MG/2 ML Vial ONE (14:50)
[2021-07-25] MEDS ORDERED: Nitroglycerin 2% Ointment 1 INCH/1 GM Packet ONE ×2 (15:43→15:46)
[2021-07-25] MEDS ORDERED: Metoprolol Tartrate 5 MG/5 ML VIAL ONE ×2 (15:43→16:34)
[2021-07-25] MEDS ORDERED: Promethazine HCl 25 MG/ML VIAL ONE (15:43)
[2021-07-25] MEDS ORDERED: Nitroglycerin 0.4 MG TAB 1 EACH ONE (15:43)
[2021-07-25] MEDS ORDERED: Nitrazine Tape 1 ROLL ONE (15:46)
[2021-07-25 16:16] LABS: #Lymphocytes 0.6 thou/uL (1.20-3.40); #Monocytes 0.3 thou/uL (0.11-0.59); %Eosinophils 0.1 % (0.0-10.0); %Lymphocytes 4.9 % (21.0-51.0); %Monocytes 2.3 % (0.0-10.0); %Neutrophils 92.7 % (42.0-75.0); Hemoglobin 10.4 g/dL (12.0-16.0); Mean Corpuscular HGB CONC 31.8 g/dL (32.0-36.0); Mean Corpuscular Hemoglobin 31.5 pg (27.0-31.0); Mean Corpuscular Volume 99.2 fL (78.0-98.0); Mean Platelet Volume 6.9 fL (7.4-10.4); Platelet Count 474 thou/uL (130-400); RBC Distribution Width 14.7 % (11.5-14.5)
[2021-07-25 16:35] LABS: ALT (SGPT) 13 U/L (8-55); AST (SGOT) 38 U/L (5-34); Albumin 3.5 g/dL (3.4-4.8); Alkaline Phosphatase 144 U/L (40-110); Anion Gap 20 mmol/L (10-20); BUN (Urea Nitrogen) 19 mg/dL (9.8-20.1); Bilirubin, Total 0.3 mg/dL (0.2-1.2); Calc. Creatinine Clearance 0 mL/min (70-130); Calcium 9.4 mg/dL (7.8-10.44); Carbon Dioxide 19 mmol/L (23-31); Chloride 108 mmol/L (98-107); Globulin 3.1 g/dL (2.4-3.5); Glucose 98 mg/dL (83-110); Potassium 4.6 mmol/L (3.5-5.1); Protein, Total 6.6 g/dL (5.8-8.1); Sodium 142 mmol/L (136-145)
[2021-07-25 17:12] LABS: CKMB 7.1 ng/mL (0-6.6)
[2021-07-25] MEDS ORDERED: Acetaminophen 650 MG Suppository PR PRN (17:52)
[2021-07-25] MEDS ORDERED: Bisacodyl 10 MG SUPP PR PRN (17:52)
[2021-07-25] MEDS ORDERED: Labetalol HCl 100 MG/20 ML VIAL SLOW IVP PRN (18:01)
[2021-07-25] MEDS ORDERED: Nitroglycerin 0.4 MG TAB (25 Tab Bottle) SL PRN (18:07)
[2021-07-25 19:01] LABS: Troponin I 0.098 ng/mL (< 0.028)
[2021-07-25] MEDS ORDERED: Enoxaparin Sodium 40 MG/0.4 ML SYRINGE SC SCH (22:00)
[2021-07-25] MEDS: Ondansetron PF 4 MG/2 ML Vial IVP PRN (22:05)
[2021-07-25 22:52] LABS: Troponin I 0.128 ng/mL (< 0.028)
[2021-07-26] MEDS: Metoclopramide HCl 10 MG/2 ML VIAL IVP PRN (02:35)
[2021-07-26] MEDS: ALPRAZolam 0.5 MG TAB PO PRN (03:07)
[2021-07-26 05:02] LABS: Anisocytosis SLIGHT = 6-15 cells (100X) (0-5/hpf); Band 5 % (5-11); Eosinophils 1 % (0-10); Hemoglobin 11.1 g/dL (12.0-16.0); Lymphocytes 10 % (21-51); MDiff Complete? YES; Mean Corpuscular HGB CONC 31.4 g/dL (32.0-36.0); Mean Corpuscular Volume 98.8 fL (78.0-98.0); Mean Platelet Volume 8.3 fL (7.4-10.4); Monocytes 1 % (0-10); Neutrophil 83 % (42-75); Platelet Count 449 thou/uL (130-400); RBC Distribution Width 15.1 % (11.5-14.5); Red Blood Cell (RBC) Count 3.59 mill/uL (4.20-5.40); White Blood Cell (WBC) Count 18.3 thou/uL (4.8-10.8)
[2021-07-26] MEDS: Morphine 4 MG/ML VIAL SLOW IVP PRN ×5 (05:21→22:57)
[2021-07-26] MEDS: Levothyroxine Sodium 100 MCG TAB PO SCH (05:26)
[2021-07-26] MEDS: Ondansetron PF 4 MG/2 ML Vial IVP PRN ×3 (05:30→17:50)
[2021-07-26 06:48] LABS: ALT (SGPT) 16 U/L (8-55); AST (SGOT) 50 U/L (5-34); Albumin 3.7 g/dL (3.4-4.8); Alkaline Phosphatase 126 U/L (40-110); Anion Gap 25 mmol/L (10-20); BUN (Urea Nitrogen) 14 mg/dL (9.8-20.1); Bilirubin, Total 0.4 mg/dL (0.2-1.2); Calc. Creatinine Clearance 45 mL/min (70-130); Carbon Dioxide 13 mmol/L (23-31); Chloride 107 mmol/L (98-107); Globulin 3.9 g/dL (2.4-3.5); Glucose 71 mg/dL (83-110); Potassium 4.5 mmol/L (3.5-5.1); Protein, Total 7.6 g/dL (5.8-8.1); Sodium 140 mmol/L (136-145)
[2021-07-26 12:05] LABS: SARS-CoV-2 PCR by NAA Not Detected (NotDetected)
[2021-07-26 18:15] LABS: Bacteria/HPF 2+ HPF (None Seen); Bilirubin Negative (Negative); Blood, Urine 1+ (Negative); Clarity Clear (Clear); Glucose, Urine (Dipstick) Normal (Negative); Ketone, Urine Greater than 150 mg/dL (Negative); Leukocyte 75 Leu/uL (Negative); Nitrite Negative (Negative); Protein, Urine (Dipstick) 100 mg/dL (Neg-Trace); Specific Gravity, Urine 1.021 (1.002-1.036); Squamous Epithelial None Seen HPF (0-3); Urobilinogen Normal mg/dL (Less than 2); pH, Urine 5.5 (5.0-9.0)
[2021-07-26 18:16] LABS: Urine Culture Reflex Yes Yes
[2021-07-26] MEDS: Hydrocortisone Sod Succ/PF 100 mg/2 ml Vial IVP SCH (18:42)
[2021-07-26] MEDS: Sodium Chloride 0.9% 1,000 ML IV SCH (18:42)
[2021-07-26] MEDS: Pantoprazole 40 MG VIAL IVP SCH (21:22)
[2021-07-27] MEDS: Hydrocortisone Sod Succ/PF 100 mg/2 ml Vial IVP SCH ×3 (02:51→18:28)
[2021-07-27] MEDS: Morphine 4 MG/ML VIAL SLOW IVP PRN ×4 (03:01→20:10)
[2021-07-27] MEDS: Sodium Chloride 0.9% 1,000 ML IV SCH ×4 (04:00→22:00)
[2021-07-27 04:45] LABS: Anion Gap 23 mmol/L (10-20); BUN (Urea Nitrogen) 10 mg/dL (9.8-20.1); Calc. Creatinine Clearance 42 mL/min (70-130); Calcium 9.5 mg/dL (7.8-10.44); Carbon Dioxide 12 mmol/L (23-31); Chloride 107 mmol/L (98-107); Glucose 95 mg/dL (83-110); Lipase 49 U/L (8-78); Potassium 3.3 mmol/L (3.5-5.1); Sodium 139 mmol/L (136-145)
[2021-07-27 05:00] LABS: ALT (SGPT) 15 U/L (8-55); AST (SGOT) 42 U/L (5-34); Albumin 3.4 g/dL (3.4-4.8); Alkaline Phosphatase 114 U/L (40-110); Bilirubin, Direct 0.3 mg/dL (0.1-0.3); Bilirubin, Total 0.5 mg/dL (0.2-1.2); Protein, Total 7.1 g/dL (5.8-8.1)
[2021-07-27] MEDS ORDERED: Electrolyte Replacement Protocol FS PRN (05:30)
[2021-07-27] MEDS: Potassium Chloride 20 MEQ in Premix Bag 1 BAG IVPB SCH ×2 (05:51→08:54)
[2021-07-27] MEDS ORDERED: Hyaluronidase, Human Recomb. 150 UNIT/ML VIAL SC SCH (06:00)
[2021-07-27 07:14] LABS: Hemoglobin 10.5 g/dL (12.0-16.0); Mean Corpuscular HGB CONC 29.6 g/dL (32.0-36.0); Mean Corpuscular Hemoglobin 30.9 pg (27.0-31.0); Mean Platelet Volume 7.2 fL (7.4-10.4); Platelet Count 523 thou/uL (130-400); RBC Distribution Width 14.6 % (11.5-14.5); White Blood Cell (WBC) Count 34.4 thou/uL (4.8-10.8)
[2021-07-27] MEDS: Levothyroxine Sodium 100 MCG TAB PO SCH (07:15)
[2021-07-27] MEDS ORDERED: Meropenem 1 GM in Sodium Chloride 0.9% 100 ML IVPB SCH (08:00)
[2021-07-27 08:15] LABS: Band 2 % (5-11); Hypersemented Neutrophil SLIGHT; Lymphocytes 8 % (21-51); MDiff Complete? YES; Monocytes 2 % (0-10); Neutrophil 88 % (42-75); Platelet Morphology Comment Appears Increased; Polychromasia SLIGHT = 2-3 cells (100X) (0-2/hpf)
[2021-07-27] MEDS: Gemfibrozil 600 MG TAB PO SCH ×2 (08:38→16:48)
[2021-07-27] MEDS: Pantoprazole 40 MG VIAL IVP SCH ×2 (08:55→20:11)
[2021-07-27] MEDS ORDERED: Pantoprazole 40 MG VIAL IVP SCH (09:00)
[2021-07-27] MEDS ORDERED: predniSONE 5 MG TAB PO SCH (09:00)
[2021-07-27] MEDS ORDERED: Iopamidol 370 76% 100 ML VIAL ONE (09:28)
[2021-07-27] MEDS ORDERED: Famotidine/PF 20 mg/2ml Vial ONE (11:08)
[2021-07-27] MEDS ORDERED: Lidocaine 1% PF 5 ML VIAL ONE (11:24)
[2021-07-27] MEDS ORDERED: PROPOFOL 200 MG/20 ML VIAL ONE (11:24)
[2021-07-27] MEDS ORDERED: Succinylcholine 200 MG/10 ml SYRINGE FS ONE (11:24)
[2021-07-27] MEDS ORDERED: PHENYLEPHRINE-NS 100 MCG/ML 10 ML SYRINGE ONE (11:24)
[2021-07-27] MEDS: Meropenem 1 GM in Sodium Chloride 0.9% 100 ML IVPB SCH (14:08)
[2021-07-27] MEDS: Metoclopramide HCl 10 MG/2 ML VIAL IVP PRN (14:27)
[2021-07-27] MEDS: Ondansetron PF 4 MG/2 ML Vial IVP PRN (20:09)
[2021-07-28] MEDS: Hydrocortisone Sod Succ/PF 100 mg/2 ml Vial IVP SCH ×3 (01:57→17:37)
[2021-07-28] MEDS: Morphine 4 MG/ML VIAL SLOW IVP PRN ×3 (01:58→20:50)
[2021-07-28 03:50] LABS: Anion Gap 21 mmol/L (10-20); BUN (Urea Nitrogen) 8 mg/dL (9.8-20.1); Calc. Creatinine Clearance 48 mL/min (70-130); Calcium 8.6 mg/dL (7.8-10.44); Carbon Dioxide 12 mmol/L (23-31); Chloride 110 mmol/L (98-107); Glucose 82 mg/dL (83-110); Potassium 3.9 mmol/L (3.5-5.1); Sodium 139 mmol/L (136-145)
[2021-07-28] MEDS: Meropenem 1 GM in Sodium Chloride 0.9% 100 ML IVPB SCH ×2 (04:40→16:35)
[2021-07-28] MEDS: Sodium Chloride 0.9% 1,000 ML IV SCH ×3 (04:47→16:36)
[2021-07-28] MEDS: Levothyroxine Sodium 100 MCG TAB PO SCH (05:34)
[2021-07-28] MEDS: Pantoprazole 40 MG VIAL IVP SCH ×2 (08:40→20:42)
[2021-07-28] MEDS: Ondansetron PF 4 MG/2 ML Vial IVP PRN (08:43)
[2021-07-28] MEDS ORDERED: FLU VACC QS2021-22(65YR UP)/PF 240 MCG/0.7 ML SYRINGE IM ONE (09:00)
[2021-07-28] MEDS: Gemfibrozil 600 MG TAB PO SCH ×2 (09:17→15:57)
[2021-07-28] MEDS: ALPRAZolam 0.5 MG TAB PO PRN (11:09)
[2021-07-28 14:48] LABS: #Lymphocytes 0.7 thou/uL (1.20-3.40); #Monocytes 0.3 thou/uL (0.11-0.59); #Neutrophils 17.6 thou/uL (1.40-6.50); %Eosinophils 0.2 % (0.0-10.0); %Lymphocytes 3.5 % (21.0-51.0); %Monocytes 1.7 % (0.0-10.0); %Neutrophils 94.6 % (42.0-75.0); Hemoglobin 8.9 g/dL (12.0-16.0); Mean Corpuscular HGB CONC 30.7 g/dL (32.0-36.0); Mean Corpuscular Hemoglobin 30.5 pg (27.0-31.0); Mean Corpuscular Volume 99.4 fL (78.0-98.0); Mean Platelet Volume 6.8 fL (7.4-10.4); Platelet Count 436 thou/uL (130-400); RBC Distribution Width 14.3 % (11.5-14.5); Red Blood Cell (RBC) Count 2.92 mill/uL (4.20-5.40); White Blood Cell (WBC) Count 18.6 thou/uL (4.8-10.8)
[2021-07-28 18:50] LABS: Lactic Acid 0.6 mmol/L (0.5-2.2)
[2021-07-28] MEDS: ALPRAZolam 0.25 MG TAB PO PRN (20:42)
[2021-07-29] MEDS: Sodium Chloride 0.9% 1,000 ML IV SCH ×4 (01:09→18:56)
[2021-07-29] MEDS: Morphine 4 MG/ML VIAL SLOW IVP PRN ×5 (01:10→20:13)
[2021-07-29] MEDS: Hydrocortisone Sod Succ/PF 100 mg/2 ml Vial IVP SCH ×2 (02:26→09:21)
[2021-07-29] MEDS ORDERED: Labetalol HCl 100 MG/20 ML VIAL SLOW IVP PRN (03:24)
[2021-07-29] MEDS: Meropenem 1 GM in Sodium Chloride 0.9% 100 ML IVPB SCH (03:39)
[2021-07-29] MEDS: Metoclopramide HCl 10 MG/2 ML VIAL IVP PRN (06:05)
[2021-07-29] MEDS: Levothyroxine Sodium 100 MCG TAB PO SCH (06:06)
[2021-07-29] MEDS: Gemfibrozil 600 MG TAB PO SCH ×2 (09:21→16:52)
[2021-07-29] MEDS: ALPRAZolam 0.25 MG TAB PO PRN ×2 (09:21→20:23)
[2021-07-29] MEDS: Pantoprazole 40 MG VIAL IVP SCH ×2 (09:22→20:13)
[2021-07-29 12:46] LABS: #Basophils 0.1 thou/uL (0.0-0.2); #Lymphocytes 0.6 thou/uL (1.20-3.40); #Monocytes 0.3 thou/uL (0.11-0.59); #Neutrophils 12.2 thou/uL (1.40-6.50); %Basophils 0.4 % (0.0-1.0); %Eosinophils 0.3 % (0.0-10.0); %Lymphocytes 4.5 % (21.0-51.0); %Monocytes 2.3 % (0.0-10.0); %Neutrophils 92.4 % (42.0-75.0); Hemoglobin 8.5 g/dL (12.0-16.0); Mean Corpuscular Hemoglobin 30.1 pg (27.0-31.0); Mean Corpuscular Volume 96.8 fL (78.0-98.0); Mean Platelet Volume 6.9 fL (7.4-10.4); Platelet Count 406 thou/uL (130-400); RBC Distribution Width 14.4 % (11.5-14.5); Red Blood Cell (RBC) Count 2.84 mill/uL (4.20-5.40); White Blood Cell (WBC) Count 13.2 thou/uL (4.8-10.8)
[2021-07-29 13:10] LABS: CRP (Inflammatory) 4.04 mg/dL (= or < 0.5); Cardiac Risk 2.7 (Less than 4.5)
[2021-07-29 13:15] LABS: Anion Gap 16 mmol/L (10-20); BUN (Urea Nitrogen) 7 mg/dL (9.8-20.1); Calc. Creatinine Clearance 47 mL/min (70-130); Calcium 7.8 mg/dL (7.8-10.44); Carbon Dioxide 15 mmol/L (23-31); Chloride 107 mmol/L (98-107); Glucose 125 mg/dL (83-110); Lipase 62 U/L (8-78); Sodium 135 mmol/L (136-145)
[2021-07-29 13:23] LABS: Potassium 2.7 mmol/L (3.5-5.1)
[2021-07-29] MEDS: Potassium Chloride 20 MEQ in Premix Bag 1 BAG IVPB SCH ×3 (14:32→18:56)
[2021-07-29] MEDS: Cefepime 1 GM in Sodium Chloride 0.9% 100 ML IVPB SCH (16:52)
[2021-07-29] MEDS: Melatonin 3 MG TAB PO PRN (20:13)
[2021-07-30] MEDS: Morphine 4 MG/ML VIAL SLOW IVP PRN ×6 (01:38→22:53)
[2021-07-30] MEDS: Sodium Chloride 0.9% 1,000 ML IV SCH (01:42)
[2021-07-30] MEDS: Cefepime 1 GM in Sodium Chloride 0.9% 100 ML IVPB SCH (04:57)
[2021-07-30 04:59] LABS: Potassium 3.9 mmol/L (3.5-5.1)
[2021-07-30] MEDS: Levothyroxine Sodium 100 MCG TAB PO SCH (05:02)
[2021-07-30] MEDS: Gemfibrozil 600 MG TAB PO SCH ×2 (08:37→15:51)
[2021-07-30] MEDS: Pantoprazole 40 MG VIAL IVP SCH ×2 (08:37→20:01)
[2021-07-30] MEDS: ALPRAZolam 0.25 MG TAB PO PRN ×2 (08:37→20:02)
[2021-07-30] MEDS: predniSONE 5 MG/5 ML UDCUP PO SCH (10:34)
[2021-07-30 10:50] LABS: #Lymphocytes 1.6 thou/uL (1.20-3.40); #Neutrophils 12.9 thou/uL (1.40-6.50); %Basophils 0.3 % (0.0-1.0); %Eosinophils 0.2 % (0.0-10.0); %Lymphocytes 10.1 % (21.0-51.0); %Monocytes 6.3 % (0.0-10.0); %Neutrophils 83.1 % (42.0-75.0); Hemoglobin 8.6 g/dL (12.0-16.0); Mean Corpuscular HGB CONC 31.6 g/dL (32.0-36.0); Mean Corpuscular Hemoglobin 30.9 pg (27.0-31.0); Mean Corpuscular Volume 97.7 fL (78.0-98.0); Mean Platelet Volume 6.6 fL (7.4-10.4); Platelet Count 435 thou/uL (130-400); RBC Distribution Width 14.4 % (11.5-14.5); Red Blood Cell (RBC) Count 2.78 mill/uL (4.20-5.40); White Blood Cell (WBC) Count 15.5 thou/uL (4.8-10.8)
[2021-07-30 11:06] LABS: BUN (Urea Nitrogen) 8 mg/dL (9.8-20.1); Calc. Creatinine Clearance 49 mL/min (70-130); Calcium 7.8 mg/dL (7.8-10.44); Chloride 110 mmol/L (98-107); Glucose 114 mg/dL (83-110); Potassium 3.6 mmol/L (3.5-5.1); Sodium 136 mmol/L (136-145)
[2021-07-30 11:12] LABS: Carbon Dioxide 18 mmol/L (23-31)
[2021-07-30 11:28] LABS: Anion Gap 11 mmol/L (10-20)
[2021-07-30] MEDS: Melatonin 3 MG TAB PO PRN (20:02)
[2021-07-30] MEDS ORDERED: Pancrelipase DR 12,000 1 CAP PO SCH (22:15)
[2021-07-31] MEDS: Morphine 4 MG/ML VIAL SLOW IVP PRN ×3 (01:40→14:40)
[2021-07-31 04:52] LABS: Anion Gap 12 mmol/L (10-20); BUN (Urea Nitrogen) 8 mg/dL (9.8-20.1); Calc. Creatinine Clearance 53 mL/min (70-130); Calcium 7.9 mg/dL (7.8-10.44); Carbon Dioxide 16 mmol/L (23-31); Chloride 111 mmol/L (98-107); Glucose 91 mg/dL (83-110); Sodium 135 mmol/L (136-145)
[2021-07-31] MEDS: Levothyroxine Sodium 100 MCG TAB PO SCH (05:23)
[2021-07-31] MEDS ORDERED: Ketorolac Tromethamine 30 MG/ML VIAL IVP SCH (05:30)
[2021-07-31] MEDS: ALPRAZolam 0.25 MG TAB PO PRN (05:32)
[2021-07-31] MEDS: Pantoprazole 40 MG VIAL IVP SCH (08:53)
[2021-07-31] MEDS: Gemfibrozil 600 MG TAB PO SCH ×2 (08:53→16:08)
[2021-07-31] MEDS: Sodium Chloride 0.9% 1,000 ML IV SCH (08:53)
[2021-07-31] MEDS: predniSONE 5 MG/5 ML UDCUP PO SCH (09:15)
[2021-07-31 09:25] LABS: #Eosinphils 0.1 thou/uL (0.0-0.7); #Lymphocytes 1.4 thou/uL (1.20-3.40); #Monocytes 0.9 thou/uL (0.11-0.59); #Neutrophils 9.9 thou/uL (1.40-6.50); %Basophils 0.3 % (0.0-1.0); %Eosinophils 0.9 % (0.0-10.0); %Lymphocytes 11.7 % (21.0-51.0); %Neutrophils 80.1 % (42.0-75.0); Mean Corpuscular HGB CONC 30.9 g/dL (32.0-36.0); Mean Corpuscular Hemoglobin 30.2 pg (27.0-31.0); Mean Corpuscular Volume 97.6 fL (78.0-98.0); Mean Platelet Volume 6.8 fL (7.4-10.4); Platelet Count 432 thou/uL (130-400); RBC Distribution Width 14.7 % (11.5-14.5); Red Blood Cell (RBC) Count 2.97 mill/uL (4.20-5.40); White Blood Cell (WBC) Count 12.3 thou/uL (4.8-10.8)
[2021-07-31 11:30] VITALS: TEMP 98
[2021-07-31 13:48] VITALS: BMI 17.2
[2021-07-31] MEDS: Ondansetron PF 4 MG/2 ML Vial IVP PRN (14:51)
[2021-07-31 16:19] VITALS: BP 120/0
== END 2021-07-31 18:03 | disposition home health service (06) | DRG 280 ==
LOC: ERS 14:30 → ERHOLD 17:41 → 2NO 20:53
PROVIDERS: ADMIT Hospitalist; ATTEND Internal Medicine
PROC: 0DC68ZZ Extirpation of Matter from Stomach, Via Natural or Artificial Opening Endoscopic (ICD-10-PCS; principal; 2021-07-27)
DX: I16.1 Hypertensive emergency (principal); E43 Unspecified severe protein-calorie malnutrition; I21.A1 Myocardial infarction type 2; Z66 Do not resuscitate; Z20.822 Contact with and (suspected) exposure to COVID-19; K86.1 Other chronic pancreatitis; R64 Cachexia; E87.2 Acidosis; Z68.1 Body mass index [BMI] 19.9 or less, adult; N39.0 Urinary tract infection, site not specified; I47.1 Supraventricular tachycardia; K44.9 Diaphragmatic hernia without obstruction or gangrene; M19.09 Primary osteoarthritis, other specified site; E78.5 Hyperlipidemia, unspecified; F41.9 Anxiety disorder, unspecified; M06.9 Rheumatoid arthritis, unspecified; B96.89 Other specified bacterial agents as the cause of diseases classified elsewhere; Z28.21 Immunization not carried out because of patient refusal; Z90.49 Acquired absence of other specified parts of digestive tract; Z95.828 Presence of other vascular implants and grafts
CPT/HCPCS: 36415; 36416; 70450; 71045; 71250; 74177; 80048; 80053; 80061; 80076; 81001; 82553; 83605; 83690; 83880; 84132; 84484; 85025; 85652; 86140; 87040; 87077; 87086; 87186; 93005; 96374; 96375; 96376; C9113; J0692; J1650; J1720; J1885; J2185; J2270; J2405; J2550; J2704; J2765; J3473; J3480; J3490; J7050; J7512; Q9967; S0028; U0003; U0005

== ENCOUNTER 2021-10-26 15:58 | Emergency (ER) | payer MEDICARE, BC | END 2021-10-26 18:56 | disposition home or self-care (01) | LOC: ERS 15:58 | DX: Z45.2 Encounter for adjustment and management of vascular access device (principal); E78.5 Hyperlipidemia, unspecified; E03.9 Hypothyroidism, unspecified; M06.9 Rheumatoid arthritis, unspecified; D64.9 Anemia, unspecified; M19.90 Unspecified osteoarthritis, unspecified site | CPT/HCPCS: 71045 ==

== ENCOUNTER 2021-11-25 05:55 | Inpatient (IN) | payer MEDICARE, BC ==
[2021-11-25] MEDS ORDERED: Morphine 2 MG/ML VIAL ONE (06:19)
[2021-11-25] MEDS ORDERED: Acetaminophen 650 MG Suppository ONE (06:19)
[2021-11-25] MEDS ORDERED: Vancomycin 1 GM/200 ML BAG ONE (06:19)
[2021-11-25] MEDS ORDERED: Ondansetron PF 4 MG/2 ML Vial ONE (06:19)
[2021-11-25 07:04] LABS: ALT (SGPT) 21 U/L (8-55); AST (SGOT) 53 U/L (5-34); Albumin 4.1 g/dL (3.4-4.8); Alkaline Phosphatase 324 U/L (40-110); Anion Gap 20 mmol/L (10-20); BUN (Urea Nitrogen) 35 mg/dL (9.8-20.1); Bilirubin, Total 0.5 mg/dL (0.2-1.2); Calc. Creatinine Clearance 0 mL/min (70-130); Calcium 9.6 mg/dL (7.8-10.44); Carbon Dioxide 19 mmol/L (23-31); Chloride 103 mmol/L (98-107); Globulin 3.7 g/dL (2.4-3.5); Glucose 103 mg/dL (83-110); Lipase 39 U/L (8-78); Potassium 4.6 mmol/L (3.5-5.1); Protein, Total 7.8 g/dL (5.8-8.1); Sodium 137 mmol/L (136-145)
[2021-11-25 07:54] LABS: Hemoglobin 9.8 g/dL (12.0-16.0); Mean Corpuscular Volume 90.4 fL (78.0-98.0); Mean Platelet Volume 7.5 fL (7.4-10.4); Platelet Count 348 thou/uL (130-400); RBC Distribution Width 15.5 % (11.5-14.5); Red Blood Cell (RBC) Count 3.48 mill/uL (4.20-5.40); White Blood Cell (WBC) Count 10.2 thou/uL (4.8-10.8)
[2021-11-25] MEDS ORDERED: Aztreonam 2 GM in Sodium Chloride 0.9% 100 ML IVPB SCH (08:00)
[2021-11-25 08:21] LABS: SARS-CoV-2 NAA Rapid Test Not Detected (NotDetected)
[2021-11-25 08:22] LABS: Anisocytosis SLIGHT = 6-15 cells (100X) (0-5/hpf); Band 41 % (5-11); Eosinophils 1 % (0-10); Lymphocytes 5 % (21-51); MDiff Complete? YES; Metamyelocyte 1 % (0-0); Monocytes 1 % (0-10); Neutrophil 50 % (42-75); Platelet Morphology Comment Appears Adequate; Polychromasia SLIGHT = 2-3 cells (100X) (0-2/hpf); Reactive Lymphocytes 1 % (0-10); Reflex for Review?? YES
[2021-11-25 09:35] LABS: Bacteria/HPF 4+ HPF (None Seen); Bilirubin Negative (Negative); Blood, Urine 2+ (Negative); Glucose, Urine (Dipstick) Normal (Negative); Ketone, Urine Negative (Negative); Leukocyte 500 Leu/uL (Negative); Nitrite Negative (Negative); Protein, Urine (Dipstick) 100 mg/dL (Neg-Trace); Urobilinogen Normal mg/dL (Less than 2); WBC/HPF Greater than 50 HPF (0-3); pH, Urine 5.5 (5.0-9.0)
[2021-11-25 09:36] LABS: Clarity Turbid (Clear)
[2021-11-25 10:52] LABS: Lactic Acid 1.7 mmol/L (0.5-2.2)
[2021-11-25 11:43] VITALS: BMI 18.1
[2021-11-25] MEDS ORDERED: Acetaminophen 650 MG Suppository PR PRN (12:46)
[2021-11-25] MEDS ORDERED: Heparin 1,000 UNITS/ML VIAL ONE (13:58)
[2021-11-25] MEDS: Sodium Chloride 0.9% 1,000 ML IV SCH (14:22)
[2021-11-25] MEDS: Acetaminophen 325 MG TAB PO PRN (17:42)
[2021-11-25] MEDS ORDERED: Cefepime 1 GM in Sodium Chloride 0.9% 100 ML IVPB SCH (20:00)
[2021-11-25] MEDS ORDERED: Meropenem 1 GM in Sodium Chloride 0.9% 100 ML IVPB SCH ×2 (20:30→20:45)
[2021-11-25] MEDS ORDERED: Aztreonam 1 GM in Sodium Chloride 0.9% 100 ML IVPB SCH (21:00)
[2021-11-25] MEDS ORDERED: HYDROcodone/Acetaminophen 5/325 mg Tablet PO SCH (21:15)
[2021-11-26] MEDS: Sodium Chloride 0.9% 1,000 ML IV SCH ×4 (00:13→22:37)
[2021-11-26] MEDS: Meropenem 1 GM in Sodium Chloride 0.9% 100 ML IVPB SCH ×3 (00:13→22:37)
[2021-11-26] MEDS: Acetaminophen 325 MG TAB PO PRN ×2 (00:13→05:26)
[2021-11-26] MEDS: Levothyroxine Sodium 100 MCG TAB PO SCH (05:26)
[2021-11-26 05:46] LABS: Anion Gap 16 mmol/L (10-20); BUN (Urea Nitrogen) 47 mg/dL (9.8-20.1); Calc. Creatinine Clearance 28 mL/min (70-130); Calcium 8.3 mg/dL (7.8-10.44); Carbon Dioxide 16 mmol/L (23-31); Chloride 107 mmol/L (98-107); Glucose 66 mg/dL (83-110); Potassium 5.3 mmol/L (3.5-5.1); Sodium 134 mmol/L (136-145)
[2021-11-26] MEDS ORDERED: Vancomycin HCl 750 MG in Sodium Chloride 0.9% 250 ML 250 ML IVPB SCH (08:00)
[2021-11-26 08:18] LABS: Band 64 % (5-11); Hemoglobin 8.6 g/dL (12.0-16.0); Hypochromia SLIGHT = 6-15 cells (100X) (0-5/hpf); Lymphocytes 4 % (21-51); MDiff Complete? YES; Mean Corpuscular HGB CONC 29.1 g/dL (32.0-36.0); Mean Corpuscular Hemoglobin 26.8 pg (27.0-31.0); Mean Corpuscular Volume 92.1 fL (78.0-98.0); Monocytes 4 % (0-10); Neutrophil 28 % (42-75); Platelet Count 311 thou/uL (130-400); Platelet Morphology Comment Appears Adequate; Polychromasia SLIGHT = 2-3 cells (100X) (0-2/hpf); RBC Distribution Width 15.8 % (11.5-14.5); Schistocytes SLIGHT = 2-5 cells (100X) (0-1/hpf); Vacuoles SLIGHT; White Blood Cell (WBC) Count 26.2 thou/uL (4.8-10.8)
[2021-11-26] MEDS: Hydroxychloroquine Sulfate 200 MG TAB PO SCH (08:49)
[2021-11-26] MEDS: predniSONE 5 MG TAB PO SCH (08:49)
[2021-11-26] MEDS: Docusate 100 MG CAP PO SCH (08:50)
[2021-11-26] MEDS ORDERED: Lorazepam 2 MG/ML VIAL SLOW IVP PRN (09:35)
[2021-11-26] MEDS: Acetaminophen/Codeine 30-300mg Tablet PO PRN ×2 (12:36→22:36)
[2021-11-26 16:59] LABS: Chloride 107 mmol/L (98-107)
[2021-11-26 17:00] LABS: Calcium 8.4 mg/dL (7.8-10.44); Potassium 5.3 mmol/L (3.5-5.1); Sodium 132 mmol/L (136-145)
[2021-11-26 17:01] LABS: Glucose 129 mg/dL (83-110)
[2021-11-26 17:02] LABS: Anion Gap 14 mmol/L (10-20); Carbon Dioxide 16 mmol/L (23-31)
[2021-11-26 17:04] LABS: Calc. Creatinine Clearance 31 mL/min (70-130)
[2021-11-26 17:05] LABS: BUN (Urea Nitrogen) 51 mg/dL (9.8-20.1)
[2021-11-27] MEDS: Sodium Chloride 0.9% 1,000 ML IV SCH (05:58)
[2021-11-27] MEDS: Levothyroxine Sodium 100 MCG TAB PO SCH (05:58)
[2021-11-27 08:04] LABS: Vancomycin, Trough 15.9 ug/mL
[2021-11-27 08:09] LABS: Anion Gap 17 mmol/L (10-20); BUN (Urea Nitrogen) 43 mg/dL (9.8-20.1); Calc. Creatinine Clearance 45 mL/min (70-130); Carbon Dioxide 11 mmol/L (23-31); Chloride 115 mmol/L (98-107); Potassium 5.6 mmol/L (3.5-5.1); Sodium 137 mmol/L (136-145)
[2021-11-27 08:10] LABS: Calcium 8.8 mg/dL (7.8-10.44); Glucose 74 mg/dL (83-110)
[2021-11-27] MEDS: Hydroxychloroquine Sulfate 200 MG TAB PO SCH (08:43)
[2021-11-27] MEDS: predniSONE 5 MG TAB PO SCH (08:43)
[2021-11-27 10:11] LABS: Band 15 % (5-11); Hemoglobin 8.3 g/dL (12.0-16.0); Hypochromia SLIGHT = 6-15 cells (100X) (0-5/hpf); Lymphocytes 2 % (21-51); MDiff Complete? YES; Mean Corpuscular HGB CONC 27.5 g/dL (32.0-36.0); Mean Corpuscular Hemoglobin 25.8 pg (27.0-31.0); Mean Corpuscular Volume 93.9 fL (78.0-98.0); Monocytes 1 % (0-10); Neutrophil 82 % (42-75); Platelet Count 442 thou/uL (130-400); Platelet Morphology Comment Appears Increased; Polychromasia SLIGHT = 2-3 cells (100X) (0-2/hpf); RBC Distribution Width 15.9 % (11.5-14.5); White Blood Cell (WBC) Count 13.3 thou/uL (4.8-10.8)
[2021-11-27] MEDS: Meropenem 1 GM in Sodium Chloride 0.9% 100 ML IVPB SCH ×2 (10:27→22:27)
[2021-11-27] MEDS: Acetaminophen/Codeine 30-300mg Tablet PO PRN ×2 (10:32→22:25)
[2021-11-27] MEDS: Docusate 100 MG CAP PO SCH (14:24)
[2021-11-27] MEDS: Dextrose 5 %-0.45 % NaCl 1,000 ML IV SCH ×2 (15:40→22:27)
[2021-11-28] MEDS: Levothyroxine Sodium 100 MCG TAB PO SCH (05:33)
[2021-11-28 06:36] LABS: #Eosinphils 0.2 thou/uL (0.0-0.7); #Lymphocytes 1.3 thou/uL (1.20-3.40); #Monocytes 0.6 thou/uL (0.11-0.59); #Neutrophils 11.6 thou/uL (1.40-6.50); %Basophils 0.3 % (0.0-1.0); %Eosinophils 1.6 % (0.0-10.0); %Lymphocytes 9.3 % (21.0-51.0); %Monocytes 4.1 % (0.0-10.0); %Neutrophils 84.8 % (42.0-75.0); Hemoglobin 7.8 g/dL (12.0-16.0); Mean Corpuscular HGB CONC 29.5 g/dL (32.0-36.0); Mean Corpuscular Hemoglobin 26.8 pg (27.0-31.0); Mean Platelet Volume 8.3 fL (7.4-10.4); Platelet Count 276 thou/uL (130-400); RBC Distribution Width 15.9 % (11.5-14.5); Red Blood Cell (RBC) Count 2.92 mill/uL (4.20-5.40); White Blood Cell (WBC) Count 13.7 thou/uL (4.8-10.8)
[2021-11-28 06:46] LABS: Anion Gap 12 mmol/L (10-20); BUN (Urea Nitrogen) 36 mg/dL (9.8-20.1); Calc. Creatinine Clearance 50 mL/min (70-130); Calcium 8.8 mg/dL (7.8-10.44); Carbon Dioxide 18 mmol/L (23-31); Chloride 117 mmol/L (98-107); Glucose 92 mg/dL (83-110); Potassium 3.3 mmol/L (3.5-5.1); Sodium 144 mmol/L (136-145)
[2021-11-28] MEDS ORDERED: Potassium Chloride 20 MEQ TAB PO SCH (07:30)
[2021-11-28] MEDS: Hydroxychloroquine Sulfate 200 MG TAB PO SCH (08:36)
[2021-11-28] MEDS: Acetaminophen/Codeine 30-300mg Tablet PO PRN ×2 (08:36→21:50)
[2021-11-28] MEDS: predniSONE 5 MG TAB PO SCH (08:36)
[2021-11-28] MEDS: Meropenem 1 GM in Sodium Chloride 0.9% 100 ML IVPB SCH ×2 (08:42→21:51)
[2021-11-28] MEDS: Dextrose 5 %-0.45 % NaCl 1,000 ML IV SCH ×2 (08:42→19:44)
[2021-11-28] MEDS: Docusate 100 MG CAP PO SCH (08:47)
[2021-11-29] MEDS: Dextrose 5 %-0.45 % NaCl 1,000 ML IV SCH ×3 (04:43→20:26)
[2021-11-29] MEDS: Levothyroxine Sodium 100 MCG TAB PO SCH (05:22)
[2021-11-29 05:40] LABS: Anion Gap 10 mmol/L (10-20); BUN (Urea Nitrogen) 28 mg/dL (9.8-20.1); Calc. Creatinine Clearance 48 mL/min (70-130); Calcium 8.5 mg/dL (7.8-10.44); Carbon Dioxide 21 mmol/L (23-31); Chloride 115 mmol/L (98-107); Glucose 91 mg/dL (83-110); Potassium 3.4 mmol/L (3.5-5.1); Sodium 143 mmol/L (136-145)
[2021-11-29 05:44] LABS: Band 6 % (5-11); Eosinophils 3 % (0-10); Lymphocytes 11 % (21-51); MDiff Complete? YES; Mean Corpuscular HGB CONC 30.5 g/dL (32.0-36.0); Mean Corpuscular Hemoglobin 27.2 pg (27.0-31.0); Mean Corpuscular Volume 89.2 fL (78.0-98.0); Mean Platelet Volume 8.4 fL (7.4-10.4); Metamyelocyte 1 % (0-0); Monocytes 3 % (0-10); Myelocyte 7 % (0-0); Neutrophil 69 % (42-75); Nucleated RBC 1 % (0); Platelet Count 272 thou/uL (130-400); RBC Distribution Width 15.9 % (11.5-14.5); Red Blood Cell (RBC) Count 2.96 mill/uL (4.20-5.40); White Blood Cell (WBC) Count 7.7 thou/uL (4.8-10.8)
[2021-11-29] MEDS ORDERED: Potassium Chloride 20 MEQ TAB PO SCH (07:30)
[2021-11-29] MEDS: Hydroxychloroquine Sulfate 200 MG TAB PO SCH (09:36)
[2021-11-29] MEDS: predniSONE 5 MG TAB PO SCH (09:36)
[2021-11-29] MEDS: Docusate 100 MG CAP PO SCH (09:36)
[2021-11-29] MEDS: Meropenem 1 GM in Sodium Chloride 0.9% 100 ML IVPB SCH (10:31)
[2021-11-29] MEDS: Acetaminophen 325 MG TAB PO PRN ×2 (10:33→17:38)
[2021-11-29] MEDS: cefTRIAXone\\ROCEPHIN 2 GM in Sodium Chloride 0.9% 100 ML IVPB SCH (14:36)
[2021-11-29] MEDS ORDERED: NIFEdipine XL 30 MG TAB PO SCH (15:45)
[2021-11-29] MEDS: Lorazepam 2 MG/ML VIAL SLOW IVP PRN (18:57)
[2021-11-30] MEDS: Levothyroxine Sodium 100 MCG TAB PO SCH (05:37)
[2021-11-30 05:54] LABS: Anion Gap 11 mmol/L (10-20); BUN (Urea Nitrogen) 18 mg/dL (9.8-20.1); Calc. Creatinine Clearance 63 mL/min (70-130); Calcium 8.6 mg/dL (7.8-10.44); Carbon Dioxide 22 mmol/L (23-31); Chloride 112 mmol/L (98-107); Glucose 82 mg/dL (83-110); Sodium 141 mmol/L (136-145)
[2021-11-30 06:25] LABS: Hemoglobin 8.2 g/dL (12.0-16.0); MDiff Complete? YES; Mean Corpuscular HGB CONC 30.6 g/dL (32.0-36.0); Mean Corpuscular Hemoglobin 27.1 pg (27.0-31.0); Mean Corpuscular Volume 88.5 fL (78.0-98.0); Mean Platelet Volume 8.4 fL (7.4-10.4); Platelet Count 296 thou/uL (130-400); RBC Distribution Width 16.1 % (11.5-14.5); Red Blood Cell (RBC) Count 3.05 mill/uL (4.20-5.40); White Blood Cell (WBC) Count 10.3 thou/uL (4.8-10.8)
[2021-11-30 06:26] LABS: Anisocytosis SLIGHT = 6-15 cells (100X) (0-5/hpf); Eosinophils 1 % (0-10); Hypochromia MODERATE=16-30 cells (100X) (0-5/hpf); Lymphocytes 19 % (21-51); Metamyelocyte 2 % (0-0); Monocytes 4 % (0-10); Neutrophil 74 % (42-75); Nucleated RBC 1 % (0); Platelet Morphology Comment Appears Adequate; Polychromasia SLIGHT = 2-3 cells (100X) (0-2/hpf)
[2021-11-30] MEDS: Docusate 100 MG CAP PO SCH (08:48)
[2021-11-30] MEDS: Hydroxychloroquine Sulfate 200 MG TAB PO SCH (08:49)
[2021-11-30] MEDS: predniSONE 5 MG TAB PO SCH (08:49)
[2021-11-30] MEDS: NIFEdipine XL 60 MG TAB PO SCH (08:49)
[2021-11-30] MEDS: Acetaminophen 325 MG TAB PO PRN ×2 (08:52→13:47)
[2021-11-30] MEDS: Dextrose 5 %-0.45 % NaCl 1,000 ML IV SCH ×2 (10:57→19:24)
[2021-11-30] MEDS: cefTRIAXone\\ROCEPHIN 2 GM in Sodium Chloride 0.9% 100 ML IVPB SCH (12:45)
[2021-11-30] MEDS: Lorazepam 2 MG/ML VIAL SLOW IVP PRN ×2 (13:50→19:44)
[2021-12-01] MEDS: Acetaminophen/Codeine 30-300mg Tablet PO PRN (01:09)
[2021-12-01] MEDS: Acetaminophen 325 MG TAB PO PRN ×4 (01:13→16:14)
[2021-12-01] MEDS: Lorazepam 2 MG/ML VIAL SLOW IVP PRN ×4 (03:04→20:53)
[2021-12-01] MEDS: Levothyroxine Sodium 100 MCG TAB PO SCH (05:14)
[2021-12-01] MEDS: Dextrose 5 %-0.45 % NaCl 1,000 ML IV SCH ×2 (05:14→17:30)
[2021-12-01] MEDS: Hydroxychloroquine Sulfate 200 MG TAB PO SCH (08:51)
[2021-12-01] MEDS: NIFEdipine XL 60 MG TAB PO SCH (08:52)
[2021-12-01] MEDS: predniSONE 5 MG TAB PO SCH (08:52)
[2021-12-01] MEDS: Docusate 100 MG CAP PO SCH (08:55)
[2021-12-01] MEDS ORDERED: Chloraseptic Spray 180 ml Bottle PO PRN (11:43)
[2021-12-01] MEDS ORDERED: hydrOXYzine 25 MG TAB PO PRN (11:43)
[2021-12-01] MEDS: cefTRIAXone\\ROCEPHIN 2 GM in Sodium Chloride 0.9% 100 ML IVPB SCH (14:13)
[2021-12-01] MEDS: Ibuprofen 200 MG TAB PO PRN (18:42)
[2021-12-01] MEDS: clonazePAM 0.5 MG TAB PO PRN (20:11)
[2021-12-01] MEDS: oxyCODONE 5 MG TAB PO PRN (22:14)
[2021-12-02] MEDS: Acetaminophen 325 MG TAB PO PRN ×3 (00:05→21:52)
[2021-12-02] MEDS: Dextrose 5 %-0.45 % NaCl 1,000 ML IV SCH ×3 (02:11→20:12)
[2021-12-02] MEDS: Ibuprofen 200 MG TAB PO PRN ×2 (04:41→21:52)
[2021-12-02] MEDS: Levothyroxine Sodium 100 MCG TAB PO SCH (04:41)
[2021-12-02] MEDS: Hydroxychloroquine Sulfate 200 MG TAB PO SCH (09:37)
[2021-12-02] MEDS: predniSONE 5 MG TAB PO SCH (09:37)
[2021-12-02] MEDS: NIFEdipine XL 60 MG TAB PO SCH (09:37)
[2021-12-02] MEDS: Docusate 100 MG CAP PO SCH (09:38)
[2021-12-02] MEDS: Lorazepam 2 MG/ML VIAL SLOW IVP PRN (10:59)
[2021-12-02] MEDS: cefTRIAXone\\ROCEPHIN 2 GM in Sodium Chloride 0.9% 100 ML IVPB SCH (14:52)
[2021-12-02] MEDS: oxyCODONE 5 MG TAB PO PRN (16:25)
[2021-12-02] MEDS: ALPRAZolam 0.5 MG TAB PO PRN (21:52)
[2021-12-03] MEDS: clonazePAM 0.5 MG TAB PO PRN (01:09)
[2021-12-03] MEDS: Acetaminophen 325 MG TAB PO PRN ×2 (04:02→18:22)
[2021-12-03] MEDS: Ibuprofen 200 MG TAB PO PRN ×2 (04:02→22:29)
[2021-12-03 05:56] LABS: Mean Corpuscular HGB CONC 29.6 g/dL (32.0-36.0); Mean Corpuscular Volume 88.1 fL (78.0-98.0); Mean Platelet Volume 8.2 fL (7.4-10.4); Platelet Count 396 thou/uL (130-400); RBC Distribution Width 16.8 % (11.5-14.5); Red Blood Cell (RBC) Count 3.45 mill/uL (4.20-5.40); White Blood Cell (WBC) Count 7.1 thou/uL (4.8-10.8)
[2021-12-03] MEDS: Levothyroxine Sodium 100 MCG TAB PO SCH (06:07)
[2021-12-03 06:15] LABS: Anion Gap 16 mmol/L (10-20); BUN (Urea Nitrogen) 10 mg/dL (9.8-20.1); Calc. Creatinine Clearance 60 mL/min (70-130); Calcium 8.8 mg/dL (7.8-10.44); Carbon Dioxide 30 mmol/L (23-31); Chloride 100 mmol/L (98-107); Glucose 80 mg/dL (83-110); Potassium 3.6 mmol/L (3.5-5.1); Sodium 142 mmol/L (136-145)
[2021-12-03] MEDS: Dextrose 5 %-0.45 % NaCl 1,000 ML IV SCH ×2 (09:36→18:30)
[2021-12-03] MEDS: predniSONE 5 MG TAB PO SCH (09:40)
[2021-12-03] MEDS: NIFEdipine XL 60 MG TAB PO SCH (09:40)
[2021-12-03] MEDS: Hydroxychloroquine Sulfate 200 MG TAB PO SCH (09:41)
[2021-12-03] MEDS: Docusate 100 MG CAP PO SCH (09:41)
[2021-12-03] MEDS ORDERED: Nystatin Powder 15 GM BOT TOP PRN (10:47)
[2021-12-03] MEDS ORDERED: Fluconazole 100 MG TAB PO SCH (11:00)
[2021-12-03] MEDS: oxyCODONE 5 MG TAB PO PRN (11:46)
[2021-12-03] MEDS: cefTRIAXone\\ROCEPHIN 2 GM in Sodium Chloride 0.9% 100 ML IVPB SCH (15:24)
[2021-12-03] MEDS: ALPRAZolam 0.5 MG TAB PO PRN (22:29)
[2021-12-04] MEDS: Acetaminophen 325 MG TAB PO PRN (01:08)
[2021-12-04] MEDS: Dextrose 5 %-0.45 % NaCl 1,000 ML IV SCH ×2 (04:54→13:57)
[2021-12-04] MEDS: Ibuprofen 200 MG TAB PO PRN ×2 (05:23→16:15)
[2021-12-04] MEDS: Levothyroxine Sodium 100 MCG TAB PO SCH (05:24)
[2021-12-04] MEDS: predniSONE 5 MG TAB PO SCH (09:35)
[2021-12-04] MEDS: NIFEdipine XL 60 MG TAB PO SCH (09:35)
[2021-12-04] MEDS: Hydroxychloroquine Sulfate 200 MG TAB PO SCH (09:35)
[2021-12-04] MEDS: Docusate 100 MG CAP PO SCH (09:36)
[2021-12-04] MEDS: oxyCODONE 5 MG TAB PO PRN (13:15)
[2021-12-04] MEDS: cefTRIAXone\\ROCEPHIN 2 GM in Sodium Chloride 0.9% 100 ML IVPB SCH (13:15)
[2021-12-04 15:52] VITALS: BP 132/75; TEMP 98.8
[2021-12-04] MEDS: ALPRAZolam 0.5 MG TAB PO PRN (16:15)
== END 2021-12-04 19:07 | DRG 871 ==
LOC: ERS 05:55 → SURG A 10:08
PROVIDERS: ADMIT Family Medicine; ATTEND Family Medicine
PROC: 3E03329 Introduction of Other Anti-infective into Peripheral Vein, Percutaneous Approach (ICD-10-PCS; principal; 2021-11-25)
PROC: 02HV33Z Insertion of Infusion Device into Superior Vena Cava, Percutaneous Approach (ICD-10-PCS; 2021-11-27)
PROC: B548ZZA Ultrasonography of Superior Vena Cava, Guidance (ICD-10-PCS; 2021-11-27)
DX: A41.51 Sepsis due to Escherichia coli [E. coli] (principal); L89.154 Pressure ulcer of sacral region, stage 4; R53.2 Functional quadriplegia; U07.1 COVID-19; E87.2 Acidosis; N30.00 Acute cystitis without hematuria; Z16.24 Resistance to multiple antibiotics; D84.9 Immunodeficiency, unspecified; Z20.822 Contact with and (suspected) exposure to COVID-19; M06.9 Rheumatoid arthritis, unspecified; E78.5 Hyperlipidemia, unspecified; M19.90 Unspecified osteoarthritis, unspecified site; E03.9 Hypothyroidism, unspecified; Z96.641 Presence of right artificial hip joint; L40.52 Psoriatic arthritis mutilans; K21.9 Gastro-esophageal reflux disease without esophagitis; F41.9 Anxiety disorder, unspecified; M25.551 Pain in right hip; G89.29 Other chronic pain; E87.6 Hypokalemia; Z88.1 Allergy status to other antibiotic agents; Z79.82 Long term (current) use of aspirin; Z79.890 Hormone replacement therapy; Z79.51 Long term (current) use of inhaled steroids; Z79.899 Other long term (current) drug therapy; Z79.52 Long term (current) use of systemic steroids; Z90.49 Acquired absence of other specified parts of digestive tract; Z81.8 Family history of other mental and behavioral disorders
CPT/HCPCS: 36415; 36569; 51701; 71045; 80048; 80053; 80202; 81003; 81015; 83605; 83690; 85025; 85027; 85060; 86850; 86900; 86901; 87040; 87077; 87086; 87149; 87186; 96365; 96367; 96375; 97139; C1751; J0696; J1644; J2060; J2185; J2270; J2405; J3370; J3490; J7042; J7050; J7512; U0003; U0005